=== PATIENT | male | born 1960 | race Caucasian/White ===

== ENCOUNTER 2018-02-10 11:08 | Emergency (ER) | payer MEDICAID, SELFPAY ==
[2018-02-10 11:09] VITALS: BP 129/88; PULSE 107; RESP 16; TEMP 36.9; O2SAT 96; BMI 27.8
--- NOTE | 2018-02-10 11:14 | ED.VISSUMM ---
- ER Visit Summary Date of Service: 02/10/18 Chief Complaint: Fall, laceration History of Present Illness: The patient is a 57 M presents to the emergency department with fall laceration. Patient states that he was drinking this morning. He went outside to look for his dog. He tripped on uneven ground and fell into a barbed wire fence. He suffered a laceration to the medial dorsum of the right forearm and a small laceration of his left neck. He states that he hit his head on the wiring, but did not lose consciousness. He denies any headache, blurry vision, double vision. He denies any other systemic symptoms. He states that his last tetanus was 3 years ago. Physical Examination: Afebrile, vitals unremarkable. Well-appearing male is in no acute distress. Head is normocephalic. Patient does have superficial abrasion mid forehead. Pupils are equal round reactive to light. Extraocular muscles are intact. Midface is stable. No malocclusion. Neck is nontender. Patient does have a 0.5 similar laceration on the left lateral neck at the angle of the mandible. There is no pulsatile bleeding. Heart is regular in rhythm. Lungs are clear. Abdomen is soft. Patient does have a 6 cm partial-thickness laceration to the medial dorsum of the right forearm. There is no pulsatile bleeding. Pulses are normal. Neuro exam is normal. GCS is 15. Test Results: [] Emergency Department Course and Treatment: The patient's wounds were anesthetized. I did examine the neck puncture. There was no evidence of traveling in the deep structures. There is no pulsatile bleeding. It was closed with 2 simple interrupted suture. His right arm laceration was irrigated and anesthetized. It was cleaned. There was a piece of graft was removed. It was closed with 7 simple interrupted suture with spacing as there was some contamination that was visible on arrival. Bacitracin dressing was applied. The patient's tetanus is already up-to-date. He was counseled on wound care and reasons to return. He will be discharged home. Treatment Plan: [] Disposition: Discharge Impression: 1. 2 cm left neck laceration with repair 2. 6 cm right forearm laceration with repair This note was generated with [employer] software. It may contain incorrect words, spelling, and punctuation that were not noted in review of the chart prior to signing ED Disposition - Plan for ED Patient: Chief Complaint: Fall Instructions: ED Laceration All Referrals: Bereket Garcia DO [Primary Care Provider] - 10 Day for suture removal
== END 2018-02-10 12:02 | disposition home or self-care (01) ==
LOC: ED 11:25
PROVIDERS: Emergency Provider Emergency Medicine; Family Provider Student in an Organized Health Care Education/Training Program; PCP Student in an Organized Health Care Education/Training Program
DX: S11.81XA Laceration without foreign body of other specified part of neck, initial encounter (principal); S51.821A Laceration with foreign body of right forearm, initial encounter; W18.09XA Striking against other object with subsequent fall, initial encounter; Y93.89 Activity, other specified; Y92.007 Garden or yard of unspecified non-institutional (private) residence as the place of occurrence of the external cause; Z72.0 Tobacco use
CPT/HCPCS: 12004; 99284